=== PATIENT | male | born 1960 | race Caucasian/White ===

== ENCOUNTER 2019-04-29 13:24 | Emergency (ER) | payer MEDICAID, OTHER ==
[~2019-04-29] VITALS: Ht 165.1 cm; Wt 92.0 kg
[~2019-04-29 13:24] MED LIST: ALBU18HF2 IH; AMMO1SOL2 TOP; CETI-101 PO; FLUT100B INH; FURO-151 PO; LISI-651 PO; POTA10CA42 PO; QUET25TA PO; SPIR25TA PO; TC1U15 TP; WARF3TAB58 PO
[2019-04-29] MEDS ORDERED: CYCLOBENZAPRINE 10MG TABLET PO ONE (14:45)
[2019-04-29] MEDS ORDERED: KETOROLAC 60MG/2ML VIAL IM ONE (14:45)
[2019-04-29 15:10] VITALS: BP 104/53
== END 2019-04-29 15:40 | disposition home or self-care (01) ==
LOC: ER 13:39
DX: M54.40 Lumbago with sciatica, unspecified side (principal); I11.0 Hypertensive heart disease with heart failure; I50.9 Heart failure, unspecified; Z79.899 Other long term (current) drug therapy
CPT/HCPCS: 96372; 99283; J1885